=== PATIENT | female | born 1945 | race American Indian/Alaskan Native ===

== ENCOUNTER 2017-05-03 11:15 | Outpatient (CLI) | payer BC | END 2017-05-03 11:16 | disposition home or self-care (01) | LOC: BICBD 11:15 | PROVIDERS: ATTEND Obstetrics & Gynecology | DX: Z12.31 Encounter for screening mammogram for malignant neoplasm of breast (principal); Z13.820 Encounter for screening for osteoporosis; M81.0 Age-related osteoporosis without current pathological fracture | CPT/HCPCS: 77063; 77067; 77080 ==

== ENCOUNTER 2019-12-22 22:06 | Emergency (ER) | payer MEDICARE, BC ==
--- NOTE | 2019-12-22 22:48 | CT ---
EXAM: CT of the cervical spine without contrast HISTORY: Neck pain after fall in the shower COMPARISON: None TECHNIQUE: Multiple contiguous axial images were obtained in a CT of the cervical spine without contr ast. Sagittal and coronal reformats were performed. FINDINGS: The vertebral bodies and intervertebral discs demonstrate normal height and alignment witho ut fracture or subluxation. No degenerative changes are present. No prevertebral soft tissue swelling is seen. The posterior facets are well aligned. Normal alignment of the skull base with the cervical spine is seen. The lung apices and cervical soft tissues are unremarkable. IMPRESSION: No evidence of acute osseous abnormality of the cervical spine.
--- NOTE | 2019-12-22 22:49 | CT ---
EXAM: CT brain without contrast HISTORY: Head trauma after fall in the shower COMPARISON: None TECHNIQUE: Multiple contiguous axial images were obtained and a CT of the brain without contrast. FINDINGS: There are scattered hypodensities in the subcortical and periventricular white matter consi stent with small vessel ischemic disease. There is no evidence of hydrocephalus, intracranial hemorrhage, or extra-axial fluid collection. The calvarium and overlying soft tissues are unremarkable. The visualized paranasal sinuses and masto id air cells are well aerated. IMPRESSION: No evidence of acute intracranial abnormality
--- NOTE | 2019-12-22 22:53 | CT ---
EXAM: CT of the lumbar spine without contrast HISTORY: Low back pain after fall in the shower COMPARISON: None TECHNIQUE: Multiple contiguous axial images were obtained in a CT of the lumbar spine without contras t. Sagittal and coronal reformats were performed. FINDINGS: There is a compression fracture of the L1 vertebral body involving the anterior aspect of t he vertebral body without involvement of the middle column. There is approximately 25% height loss. The other vertebral bodies are normal in height without evidence of acute fracture. There is no evide nce of subluxation of the lumbar vertebral bodies. . No degenerative changes are present. Postsurgical changes are seen in the stomach. Atherosclerotic calcifications are seen in the aorta.. The paraspinal soft tissues are unremarkable. IMPRESSION: L1 compression fracture as above
== END 2019-12-23 00:20 | disposition home or self-care (01) ==
LOC: ERS 22:06
DX: S32.019A Unspecified fracture of first lumbar vertebra, initial encounter for closed fracture (principal); W18.2XXA Fall in (into) shower or empty bathtub, initial encounter
CPT/HCPCS: 70450; 72125; 72131

== ENCOUNTER 2020-01-02 09:12 | Outpatient (CLI) | payer MEDICARE, BC ==
--- NOTE | 2020-01-02 10:17 | RAD ---
2 VIEWS LUMBAR SPINE: Date: 01/02/2020 COMPARISON: CT lumbar spine dated 12/22/2019. HISTORY: Re-evaluate fracture. FINDINGS: Upright frontal and lateral imaging of the lumbar spine provided with the patient in a brace. The ant erior wedge compression fracture/superior end plate fracture of L1 is again noted. On the prior CT, t here was approximately 20% loss of vertebral body height anteriorly. There has been mild interval wor sening in the degree of anterior wedge deformity which measures in the 30% range on this exam. IMPRESSION: Anterior wedge compression fracture at L1 with slight interval worsening of vertebral body height los s anteriorly when compared to the 12/22/2019 CT. POS: AH
== END 2020-01-02 09:13 | disposition home or self-care (01) ==
LOC: TBSIIMAG 09:12
PROVIDERS: ATTEND Neurological Surgery
DX: S32.010D Wedge compression fracture of first lumbar vertebra, subsequent encounter for fracture with routine healing (principal)
CPT/HCPCS: 72100

== ENCOUNTER 2020-02-16 10:56 | Outpatient (CLI) | payer MEDICARE, BC ==
--- NOTE | 2020-02-16 11:48 | RAD ---
LUMBAR SPINE SERIES 2 VIEWS: Date: 02/16/2020 HISTORY: Follow-up of compression fracture. COMPARISON: 01/02/2020 exam. FINDINGS: Compression changes of the superior end plate of L1 are felt to be fairly similar to the previous exa m given differences in technique. IMPRESSION: Stable exam. POS: JOSE
== END 2020-02-16 10:57 | disposition home or self-care (01) ==
LOC: TBSIIMAG 10:56
PROVIDERS: ATTEND Neurological Surgery
DX: S32.019D Unspecified fracture of first lumbar vertebra, subsequent encounter for fracture with routine healing (principal)
CPT/HCPCS: 72100

== ENCOUNTER 2020-09-06 08:05 | Outpatient (CLI) | payer MEDICARE, BC | END 2020-09-06 08:06 | disposition home or self-care (01) | LOC: BICMAMMO 08:05 | PROVIDERS: ATTEND Family Medicine | DX: Z12.31 Encounter for screening mammogram for malignant neoplasm of breast (principal); Z85.00 Personal history of malignant neoplasm of unspecified digestive organ | CPT/HCPCS: 77063; 77067 ==

== ENCOUNTER 2021-04-18 11:07 | Outpatient (CLI) | payer MEDICARE, BC | END 2021-04-18 11:08 | disposition home or self-care (01) | LOC: BICMAMMO 11:07 | PROVIDERS: ATTEND Family Medicine | DX: Z13.820 Encounter for screening for osteoporosis (principal); M81.0 Age-related osteoporosis without current pathological fracture; Z78.0 Asymptomatic menopausal state | CPT/HCPCS: 77080 ==

== ENCOUNTER 2021-09-09 15:14 | Outpatient (CLI) | payer MEDICARE, BC | END 2021-09-09 15:15 | disposition home or self-care (01) | LOC: BICMAMMO 15:14 | PROVIDERS: ATTEND Family Medicine | DX: Z12.31 Encounter for screening mammogram for malignant neoplasm of breast (principal) | CPT/HCPCS: 77063; 77067 ==

== ENCOUNTER 2022-11-28 08:29 | Outpatient (CLI) | payer MEDICARE, BC | END 2022-11-28 08:30 | disposition home or self-care (01) | LOC: BICMAMMO 08:29 | PROVIDERS: ATTEND Internal Medicine Rheumatology | DX: M81.0 Age-related osteoporosis without current pathological fracture (principal) | CPT/HCPCS: 77080 ==

== ENCOUNTER 2023-11-13 10:57 | Outpatient (CLI) | payer MEDICARE, BC | END 2023-11-13 10:58 | disposition home or self-care (01) | LOC: BICMAMMO 10:57 | PROVIDERS: ATTEND Family Medicine | DX: Z12.31 Encounter for screening mammogram for malignant neoplasm of breast (principal); Z91.89 Other specified personal risk factors, not elsewhere classified; Z85.00 Personal history of malignant neoplasm of unspecified digestive organ | CPT/HCPCS: 77063; 77067 ==

== ENCOUNTER 2025-03-09 07:45 | Outpatient (CLI) | payer MEDICARE | END 2025-03-09 07:46 | disposition home or self-care (01) | LOC: BICMAMMO 07:45 | PROVIDERS: ATTEND Internal Medicine Rheumatology | DX: M81.0 Age-related osteoporosis without current pathological fracture (principal); M85.851 Other specified disorders of bone density and structure, right thigh; M85.852 Other specified disorders of bone density and structure, left thigh | CPT/HCPCS: 77080 ==